=== PATIENT | male | born 1955 | race Caucasian/White ===

== ENCOUNTER 2018-12-05 09:43 | Day surgery (SDC) | payer MEDICAID ==
[~2018-12-05] VITALS: Ht 182.9 cm; Wt 90.4 kg
[2018-12-05] VITALS (10 sets, daily range): BP systolic 135–165; BP diastolic 77–90
[~2018-12-05 09:43] MED LIST: ACET-2144 PO; ASPI-1264 PO; FLO0.4C PO; LEVO750T21 PO; NEUPHOSK PO; NORCO10T PO; ONDA8TAB9 PO
[2018-12-05] MEDS ORDERED: OMEP40CA13 PO (11:41)
[2018-12-05] MEDS ORDERED: ASPI-1265 PO (11:41)
[2018-12-05] MEDS ORDERED: FLO0.4C PO (11:41)
[2018-12-05] MEDS ORDERED: HYDR12.5 PO (11:41)
[2018-12-05] MEDS ORDERED: FURO-150 PO (11:41)
[2018-12-05] MEDS ORDERED: ATOR40TA PO (11:41)
[2018-12-05] MEDS ORDERED: LIDOcaine 1%/PF 5ML 10 MG/ML VIAL ONE (15:01)
[2018-12-05 16:25] LABS: GLUCOSE,CSF 79 MG/DL (40-75); TOTAL PROTEIN,CSF 67 MG/DL (30-60)
[2018-12-05 16:31] LABS: GLUCOSE,CSF 79 MG/DL (40-75)
[2018-12-05 16:42] LABS: APPEARANCE,CSF CLEAR; CSF SUPERNATANT COLOR COLORLESS; CSF VOLUME 28 ML; TUBE# COUNTED 1
[2018-12-05 16:43] LABS: APPEARANCE,CSF CLEAR; CSF RBC 19 /CU MM (0); CSF SUPERNATANT COLOR COLORLESS; CSF VOLUME 28 ML; CSF WBC CT 0 /CU MM (0-5); CSF WBC CT 3 /CU MM (0-5); TUBE# COUNTED 4
[2018-12-05 16:44] LABS: CSF RBC 1 /CU MM (0)
== END 2018-12-05 19:55 | disposition home or self-care (01) ==
LOC: SSTAY O 09:43 → EDSTATUS 10:00 → SSTAY O 19:55
PROVIDERS: ATTEND Psychiatry & Neurology Neurology
DX: I69.318 Other symptoms and signs involving cognitive functions following cerebral infarction (principal); R41.89 Other symptoms and signs involving cognitive functions and awareness; R90.82 White matter disease, unspecified; Z87.891 Personal history of nicotine dependence; I99.8 Other disorder of circulatory system; R26.89 Other abnormalities of gait and mobility
CPT/HCPCS: 36415; 62272; 77003; 82945; 83873; 84157; 89051; 95816

== ENCOUNTER 2020-07-02 06:48 | Inpatient (IN) | payer MEDICAID ==
[2020-06-28 16:38] LABS: BASOPHILS # (AUTO) 0.1 X10'3 (0-0.2); EOSINOPHILS # (AUTO) 0.5 X10'3 (0-0.9); EOSINOPHILS % (AUTO) 4.3 % (0-6); LYMPHOCYTES # (AUTO) 1.7 X10'3 (1.1-4.8); LYMPHOCYTES % (AUTO) 15.7 % (21-51); MEAN CORPUSCULAR HEMOGLOBIN 28.1 PG (27.0-31.0); MEAN CORPUSCULAR HGB CONC 32.9 g/dL (33.0-36.5); MEAN CORPUSCULAR VOLUME 85.3 FL (78-98); MEAN PLATELET VOLUME 7.6 FL (7.4-10.4); MONOCYTES # (AUTO) 0.9 X10'3 (0-0.9); MONOCYTES % (AUTO) 8.5 % (2-12); NEUTROPHILS # (AUTO) 7.6 X10'3 (1.8-7.7); NEUTROPHILS % (AUTO) 70.5 % (42-75); PRE OP HEMATOCRIT 40.9 % (42.0-52.0); PRE OP HEMOGLOBIN 13.5 g/dL (14.0-17.9); PRE OP PLATELET COUNT 413 X10'3 (140-440); RED CELL DISTRIBUTION WIDTH 18.4 % (11.5-14.5)
[2020-06-28 16:51] LABS: PRE OP PROTIME 10.3 SECONDS (9.0-12.0)
[2020-06-28 16:57] LABS: ALBUMIN 3.3 G/DL (3.4-5.0); ALBUMIN/GLOBULIN RATIO 0.7 (1.1-1.5); ALKALINE PHOSPHATASE 103 IU/L (46-116); BLOOD UREA NITROGEN 16 MG/DL (7-18); BUN/CREATININE RATIO 18.4 (5.4-32.0); CALCIUM 9.1 MG/DL (8.5-10.1); CHLORIDE 106 MMOL/L (99-107); CREATININE 0.87 MG/DL (0.60-1.10); PRE OP ALT 23 U/L (30-65); PRE OP ANION GAP 10 (8-16); PRE OP AST 12 U/L (10-37); PRE OP BILIRUB, TOTAL 0.3 MG/DL (0.0-1.0); PRE OP GLUCOSE 90 MG/DL (70-104); PRE OP SODIUM 141 MMOL/L (135-145); TOTAL CARBON DIOXIDE 25.5 MMOL/L (24-32); TOTAL PROTEIN 8.1 G/DL (6.4-8.2); eGFR 88 ML/MIN
[2020-07-02] VITALS (25 sets, daily range): BP systolic 136–159; BP diastolic 44–98
[~2020-07-02] VITALS: Ht 182.9 cm; Wt 93.7 kg
[~2020-07-02 06:48] MED LIST changes: -ACET-2144 PO; -ASPI-1264 PO; +ASPI-1265 PO; +ATOR40TA PO; +FURO-150 PO; -LEVO750T21 PO; -NEUPHOSK PO; -NORCO10T PO; +OMEP40CA13 PO; -ONDA8TAB9 PO; +POTA10TA19 PO; +ROPI0.2540 PO; +VALS40TA11 PO; +albuterol 2.5 MG/3 ML nebule NEB ONE; +famotidine 20mg tablet PO ONE; +ringers solution, lacted 1,000 ML IV SCH
[2020-07-02] MEDS ORDERED: HYDROmorphone inj. 0.5 MG/0.5 ML DISP.SYRIN IV PRN (06:50)
[2020-07-02] MEDS ORDERED: ondansetron/PF 4mg/2ml inj IV PRN ×2 (06:50→14:00)
[2020-07-02] MEDS ORDERED: magnesium hydroxide 30ml (MOM) UD suspension PO PRN (06:50)
[2020-07-02] MEDS ORDERED: acetaminophen 325mg tablet PO PRN (06:50)
[2020-07-02] MEDS ORDERED: HYDROmorphone 1 mg/ml syringe IV PRN (06:50)
[2020-07-02] MEDS ORDERED: diphenhydrAMINE 25mg capsule PO PRN ×2 (06:50)
[2020-07-02] MEDS ORDERED: HYDROcodone/acetaminophen 10/325mg tab PO PRN ×2 (06:50)
[2020-07-02] MEDS ORDERED: bisacodyl 10mg suppository rectal RC PRN (06:50)
[2020-07-02] MEDS ORDERED: gabapentin 300mg capsule PO SCH (08:00)
[2020-07-02] MEDS: potassium chloride 10mEq ER tablet PO SCH (08:00)
[2020-07-02] MEDS: multivitamins, therapeutics tablet PO SCH (08:00)
[2020-07-02] MEDS: furosemide 40mg tablet PO SCH (08:00)
[2020-07-02] MEDS ORDERED: tamsulosin 0.4mg capsule PO SCH (08:00)
[2020-07-02] MEDS: atorvastatin 20mg tablet PO SCH (08:00)
[2020-07-02] MEDS ORDERED: cefazolin/dext.iso 2gm/100ml IV ONE (09:01)
[2020-07-02] MEDS ORDERED: VANCOMYCIN INJ 1000 MG in NORMAL SALINE 250ml IV.SOLN IV ONE (09:02)
[2020-07-02] MEDS ORDERED: tranexamic acid 1gm/0.7% sal. 100 ML IV ONE (09:02)
[2020-07-02] MEDS ORDERED: gabapentin 300mg capsule PO ONE (09:03)
[2020-07-02] MEDS ORDERED: celeCOXIB 100mg capsule PO ONE (09:03)
[2020-07-02] MEDS ORDERED: acetaminophen 325mg tablet PO ONE (09:03)
[2020-07-02] MEDS ORDERED: oxyCODONE SR 10mg (sust. release) tab -2 tabs (20mg) PO ONE (09:03)
[2020-07-02] MEDS ORDERED: metoclopramide 5 mg/ml inj IV ONE (09:05)
[2020-07-02] MEDS ORDERED: oxyCODONE SR 10mg (sust. release) tab PO ONE (11:55)
[2020-07-02] MEDS ORDERED: vancomycin 1,000mg inj ONE ×2 (11:59→12:42)
[2020-07-02] MEDS ORDERED: tobramycin sulfate 1.2gm vial IV ONE (12:30)
[2020-07-02] MEDS ORDERED: midazolam 1 mg/ML 2ml injection ONE (13:09)
[2020-07-02] MEDS ORDERED: propofol inj 20 ML IV ONE (13:10)
[2020-07-02] MEDS ORDERED: fentaNYL /PF 50mcg/ml 5ml ampule ONE (13:10)
[2020-07-02] MEDS ORDERED: rocuronium 10mg/ml inj IV ONE (13:12)
[2020-07-02] MEDS ORDERED: sevoflurane 250ml liquid IH ONE (13:12)
[2020-07-02] MEDS ORDERED: ROPIVAcaine 0.5% (5mg/ml) 30ml vial ONE (13:24)
[2020-07-02] MEDS ORDERED: morphine 4 MG/ML inj SYRINge IV PRN (14:00)
[2020-07-02] MEDS ORDERED: morphine 2 MG/ML inj. syringe IV PRN (14:00)
[2020-07-02] MEDS ORDERED: ringers solution, lacted 1,000 ML IV SCH (14:00)
[2020-07-02] MEDS ORDERED: meperidine/PF 25mg/ml syringe IV PRN ×3 (14:00)
[2020-07-02] MEDS ORDERED: proCHLORperazine 10 MG/2 ml inj IV PRN (14:00)
[2020-07-02] MEDS ORDERED: albumin (Human) 5% 250ml 250 ML IV ONE ×3 (14:45→15:46)
[2020-07-02] MEDS ORDERED: fentaNYL/PF 50MCG/1 ML 2ML syringe ONE (15:48)
--- NOTE | 2020-07-02 16:17 | NUR ---
Received from OR via BED, accompanied by Anesthesiologist DR ISABEL and report given by Anesthesiologist. PT VERY DROWSY, NO S/S OF DISTRESS/DISCOMFORT. RIGHT HIP/THIGH W/[place] DRAIN CDI W/GREEN LIGHT ILLUMINATION, RIGHT LEG IN BRACE. Addendum: 07/02/20 at 1841 by Velma Baca RN Amended: Links added.
[2020-07-02] MEDS: potassium cl 20mEq in 1/2 NS 1,000 ML IV SCH (17:30)
--- NOTE | 2020-07-02 18:30 | NUR ---
Problems reprioritized. Patient report given, questions answered & plan of care reviewed with TERENCE Grijalva.
--- NOTE | 2020-07-02 18:57 | NUR ---
Report called to receiving nurse. Transferred via BED, W/C AND 2 BAGS OF PERSONAL Belongings, BLL, CALL LIGHT GIVEN, SIDE RAILS UP X 2. CONCRETE PUDDLER NOTIFIED OF PTS ARRIVAL. Special Issues communicated to receiving nurse. YES. Addendum: 07/02/20 at 1925 by Velma Baca RN Amended: Links added.
[2020-07-02] MEDS ORDERED: NORMAL SALINE IV ONE (19:45)
[2020-07-02] MEDS ORDERED: TRANEXAMIC ACID IV ONE (19:45)
--- NOTE | 2020-07-02 20:00 | NUR ---
PT RESTING IN BED COMFORTABLY FOLLOWING PROCEDURE. PT STATES HE IS TIRED BUT IN NO PAIN OR DISTRESS AT THIS TIME. PT POSITIONED COMFORTABLY AT THIS TIME WITH CALL LIGHT WITHIN REACH AND BED LOCKED IN LOWEST POSITION.
[2020-07-02] MEDS: sennosides 8.6mg tablet PO SCH (22:09)
[2020-07-02] MEDS: gabapentin 300mg capsule PO SCH (22:09)
[2020-07-02] MEDS: ascorbic acid 500mg tablet PO SCH (22:09)
[2020-07-02] MEDS: cefazolin/dext.iso 2gm/100ml 100 ML IV SCH (22:10)
[2020-07-02] MEDS: ROPINIRole 0.25mg tablet PO SCH (22:10)
[2020-07-03] VITALS (7 sets, daily range): BP systolic 110–148; BP diastolic 69–85
[2020-07-03] MEDS: cefazolin/dext.iso 2gm/100ml 100 ML IV SCH (00:35)
[2020-07-03] MEDS: potassium cl 20mEq in 1/2 NS 1,000 ML IV SCH ×2 (00:35→13:53)
[2020-07-03 06:11] LABS: BASOPHILS % (AUTO) 0.4 % (0-1); EOSINOPHILS # (AUTO) 0.1 X10'3 (0-0.9); EOSINOPHILS % (AUTO) 0.9 % (0-6); HEMATOCRIT 27.6 % (42.0-52.0); HEMOGLOBIN 9.3 g/dl (14.0-17.9); LYMPHOCYTES # (AUTO) 1.6 X10'3 (1.1-4.8); LYMPHOCYTES % (AUTO) 16.6 % (21-51); MEAN CORPUSCULAR HEMOGLOBIN 28.8 PG (27.0-31.0); MEAN CORPUSCULAR HGB CONC 33.8 g/dL (33.0-36.5); MEAN CORPUSCULAR VOLUME 85.1 FL (78-98); MEAN PLATELET VOLUME 7.8 FL (7.4-10.4); MONOCYTES # (AUTO) 0.7 X10'3 (0-0.9); MONOCYTES % (AUTO) 7.5 % (2-12); NEUTROPHILS # (AUTO) 7.4 X10'3 (1.8-7.7); NEUTROPHILS % (AUTO) 74.6 % (42-75); PLATELET COUNT 314 X10'3 (140-440); RED BLOOD COUNT 3.24 X10'6 (4.70-6.10); RED CELL DISTRIBUTION WIDTH 17.7 % (11.5-14.5); WHITE BLOOD COUNT 9.9 X10'3 (4.5-11.0)
[2020-07-03 06:23] LABS: ANION GAP 11 (8-16); CHLORIDE 109 MMOL/L (99-107); POTASSIUM 3.9 MMOL/L (3.5-5.1); SODIUM 142 MMOL/L (135-145); TOTAL CARBON DIOXIDE 22.3 MMOL/L (24-32)
--- NOTE | 2020-07-03 06:40 | NUR ---
Patient in room ORTHO 4022. I have received report from izabella jose and had the opportunity to ask questions and assume patient care.
[2020-07-03] MEDS ORDERED: aspirin 325mg tablet ONE (07:17)
[2020-07-03] MEDS: pantoprazole 40mg Tablet.DR PO SCH (07:31)
[2020-07-03] MEDS: ascorbic acid 500mg tablet PO SCH ×2 (07:31→20:12)
[2020-07-03] MEDS: tamsulosin 0.4mg capsule PO SCH (07:31)
[2020-07-03] MEDS: furosemide 40mg tablet PO SCH (07:31)
[2020-07-03] MEDS: multivitamins, therapeutics tablet PO SCH (07:31)
[2020-07-03] MEDS: atorvastatin 20mg tablet PO SCH (07:32)
[2020-07-03] MEDS: potassium chloride 10mEq ER tablet PO SCH (07:32)
[2020-07-03] MEDS: gabapentin 300mg capsule PO SCH ×3 (07:32→20:12)
[2020-07-03] MEDS: losartan 25mg tablet PO SCH (07:32)
[2020-07-03] MEDS ORDERED: aspirin 325mg tablet PO SCH (08:30)
--- NOTE | 2020-07-03 18:03 | NUR ---
Problems reprioritized. Patient report given, questions answered & plan of care reviewed with
--- NOTE | 2020-07-03 18:30 | NUR ---
Patient in room ORTHO 4022. I have received report from TERENCE SCHWARTZ and had the opportunity to ask questions and assume patient care.
[2020-07-03] MEDS: celeCOXIB 100mg capsule PO SCH (20:11)
[2020-07-03] MEDS: sennosides 8.6mg tablet PO SCH (20:12)
[2020-07-03] MEDS: ROPINIRole 0.25mg tablet PO SCH (20:12)
[2020-07-03] MEDS: enoxaparin 40mg/0.4ml syringe SUBCUT SCH (20:13)
[2020-07-04 06:00] VITALS: BP 127/81
--- NOTE | 2020-07-04 06:13 | NUR ---
Patient in room ORTHO 4022. I have received report from Yayo Stewart and had the opportunity to ask questions and assume patient care.
[2020-07-04 06:21] LABS: BASOPHILS % (AUTO) 0.3 % (0-1); EOSINOPHILS # (AUTO) 0.4 X10'3 (0-0.9); EOSINOPHILS % (AUTO) 3.7 % (0-6); HEMATOCRIT 25.7 % (42.0-52.0); HEMOGLOBIN 8.8 g/dl (14.0-17.9); LYMPHOCYTES # (AUTO) 1.6 X10'3 (1.1-4.8); LYMPHOCYTES % (AUTO) 14.5 % (21-51); MEAN CORPUSCULAR HGB CONC 34.2 g/dL (33.0-36.5); MEAN PLATELET VOLUME 7.9 FL (7.4-10.4); MONOCYTES % (AUTO) 9.6 % (2-12); NEUTROPHILS # (AUTO) 7.8 X10'3 (1.8-7.7); NEUTROPHILS % (AUTO) 71.9 % (42-75); PLATELET COUNT 276 X10'3 (140-440); RED BLOOD COUNT 3.02 X10'6 (4.70-6.10); RED CELL DISTRIBUTION WIDTH 17.7 % (11.5-14.5); WHITE BLOOD COUNT 10.9 X10'3 (4.5-11.0)
--- NOTE | 2020-07-04 06:25 | NUR ---
Problems reprioritized. Patient report given, questions answered & plan of care reviewed with TERENCE LINARES.
[2020-07-04] MEDS: pantoprazole 40mg Tablet.DR PO SCH (08:37)
[2020-07-04] MEDS: gabapentin 300mg capsule PO SCH ×3 (08:37→20:17)
[2020-07-04] MEDS: atorvastatin 20mg tablet PO SCH (08:38)
[2020-07-04] MEDS: furosemide 40mg tablet PO SCH (08:38)
[2020-07-04] MEDS: ascorbic acid 500mg tablet PO SCH ×2 (08:38→20:16)
[2020-07-04] MEDS: potassium chloride 10mEq ER tablet PO SCH (08:38)
[2020-07-04] MEDS: losartan 25mg tablet PO SCH (08:39)
[2020-07-04] MEDS: celeCOXIB 100mg capsule PO SCH ×2 (08:39→20:17)
[2020-07-04] MEDS: tamsulosin 0.4mg capsule PO SCH (08:39)
[2020-07-04] MEDS: multivitamins, therapeutics tablet PO SCH (08:40)
[2020-07-04 10:00] VITALS: BP 125/78
[2020-07-04] MEDS: VANCOmycin 1250MG/NS 250ml Bag 250 ML IV SCH (12:22)
[2020-07-04 18:00] VITALS: BP 107/63
--- NOTE | 2020-07-04 18:33 | NUR ---
Problems reprioritized. Patient report given, questions answered & plan of care reviewed with Best PRATT.
[2020-07-04] MEDS: enoxaparin 40mg/0.4ml syringe SUBCUT SCH (20:16)
[2020-07-04] MEDS: sennosides 8.6mg tablet PO SCH (20:16)
[2020-07-04] MEDS: ROPINIRole 0.25mg tablet PO SCH (20:17)
[2020-07-04 21:34] VITALS: BP 104/62
[2020-07-05] MEDS: VANCOmycin 1250MG/NS 250ml Bag 250 ML IV SCH ×2 (00:17→12:04)
[2020-07-05 06:00] VITALS: BP 141/75
--- NOTE | 2020-07-05 06:08 | NUR ---
Problems reprioritized. Patient report given, questions answered & plan of care reviewed with TERENCE Patel.
[2020-07-05 06:09] LABS: BASOPHILS % (AUTO) 0.3 % (0-1); EOSINOPHILS # (AUTO) 0.5 X10'3 (0-0.9); EOSINOPHILS % (AUTO) 5.2 % (0-6); HEMATOCRIT 26.3 % (42.0-52.0); HEMOGLOBIN 8.8 g/dl (14.0-17.9); LYMPHOCYTES # (AUTO) 1.3 X10'3 (1.1-4.8); LYMPHOCYTES % (AUTO) 13.8 % (21-51); MEAN CORPUSCULAR HEMOGLOBIN 28.5 PG (27.0-31.0); MEAN CORPUSCULAR HGB CONC 33.3 g/dL (33.0-36.5); MEAN CORPUSCULAR VOLUME 85.4 FL (78-98); MEAN PLATELET VOLUME 7.8 FL (7.4-10.4); MONOCYTES # (AUTO) 0.9 X10'3 (0-0.9); MONOCYTES % (AUTO) 9.7 % (2-12); NEUTROPHILS # (AUTO) 6.5 X10'3 (1.8-7.7); PLATELET COUNT 299 X10'3 (140-440); RED BLOOD COUNT 3.08 X10'6 (4.70-6.10); RED CELL DISTRIBUTION WIDTH 17.8 % (11.5-14.5); WHITE BLOOD COUNT 9.2 X10'3 (4.5-11.0)
[2020-07-05 06:24] LABS: ALBUMIN 2.6 G/DL (3.4-5.0); ANION GAP 10 (8-16); BLOOD UREA NITROGEN 12 MG/DL (7-18); BUN/CREATININE RATIO 14.1 (5.4-32.0); CALCIUM 8.2 MG/DL (8.5-10.1); CHLORIDE 105 MMOL/L (99-107); CREATININE 0.85 MG/DL (0.60-1.10); GLUCOSE 103 MG/DL (70-104); POTASSIUM 3.6 MMOL/L (3.5-5.1); SODIUM 139 MMOL/L (135-145); TOTAL CARBON DIOXIDE 24.1 MMOL/L (24-32); eGFR > 90 ML/MIN
[2020-07-05] MEDS: tamsulosin 0.4mg capsule PO SCH (08:43)
[2020-07-05] MEDS: losartan 25mg tablet PO SCH (08:43)
[2020-07-05] MEDS: pantoprazole 40mg Tablet.DR PO SCH (08:43)
[2020-07-05] MEDS: potassium chloride 10mEq ER tablet PO SCH (08:43)
[2020-07-05] MEDS: gabapentin 300mg capsule PO SCH ×2 (08:44→12:04)
[2020-07-05] MEDS: celeCOXIB 100mg capsule PO SCH ×2 (08:44→22:56)
[2020-07-05] MEDS: multivitamins, therapeutics tablet PO SCH (08:44)
[2020-07-05] MEDS: atorvastatin 20mg tablet PO SCH (08:44)
[2020-07-05] MEDS: furosemide 40mg tablet PO SCH (08:45)
[2020-07-05] MEDS: ascorbic acid 500mg tablet PO SCH ×2 (08:45→23:02)
[2020-07-05 09:34] VITALS: BP 111/64
[2020-07-05] MEDS ORDERED: methylnaltrexone br 12mg/0.6ml inj***SubQ only SQ ONE (12:15)
[2020-07-05] MEDS ORDERED: gabapentin 100mg capsule PO SCH (13:00)
[2020-07-05] MEDS: ipratropium/albuterol 3ml nebule NEB SCH ×3 (15:00→19:45)
[2020-07-05 18:00] VITALS: BP 94/47
--- NOTE | 2020-07-05 18:00 | NUR ---
Patient in room ORTHO 4018. I have received report from Amanda PRATT and had the opportunity to ask questions and assume patient care. Addendum: 07/05/20 at 1857 by Ashlee Augustine RN Amended: Links added.
--- NOTE | 2020-07-05 18:27 | NUR ---
Problems reprioritized. Patient report given, questions answered & plan of care reviewed with Ashlee PRATT.
--- NOTE | 2020-07-05 20:45 | NUR ---
Pt requested a nicotine patch and stated he smokes half pack a day. Dr. Rocha was called and an order for 7mg Nicotine patch was obtained and has been ordered to begin at 2100.
--- NOTE | 2020-07-05 21:45 | NUR ---
Pt. awake laying in bed denies pain at this time. Pt. is alert to own name only; reoriented pt to place, time, and events. Rt hip wound with [place] dressing patent at this time, surrounding skin incision area with mild swelling noted. Pt. able to winkle the toes without difficulties. Bed in low position and call light within reach. Addendum: 07/06/20 at 0357 by Ashlee Augustine RN Amended: Links added.
[2020-07-05 22:00] VITALS: BP 90/53
[2020-07-05] MEDS: enoxaparin 40mg/0.4ml syringe SUBCUT SCH (22:56)
[2020-07-05] MEDS: ROPINIRole 0.25mg tablet PO SCH (22:56)
[2020-07-05] MEDS: lactobacillus rhamnosus 10,000 MMU CELLS/CAPSULE PO SCH (22:56)
[2020-07-05] MEDS: gabapentin 100mg capsule PO SCH (22:56)
[2020-07-05] MEDS: nicotine 7mg patch - 24hr TD SCH (22:57)
[2020-07-05] MEDS: sennosides 8.6mg tablet PO SCH (23:02)
[2020-07-05] MEDS ORDERED: VANCOMYCIN LEVEL IV ONE (23:30)
--- NOTE | 2020-07-05 23:30 | NUR ---
Reviewed pt's bp manually and revealed 122/56, Hr 86, and Temp 99.6. Addendum: 07/06/20 at 0751 by Ashlee Augustine RN Amended: Links added.
[2020-07-06 06:00] VITALS: BP 109/57
--- NOTE | 2020-07-06 06:00 | NUR ---
Problems reprioritized. Patient report given, questions answered & plan of care reviewed with Amanda PRATT. Addendum: 07/06/20 at 0748 by Ashlee Augustine RN Amended: Links added.
[2020-07-06] MEDS: multivitamins, therapeutics tablet PO SCH (07:10)
[2020-07-06] MEDS: furosemide 40mg tablet PO SCH (07:10)
[2020-07-06] MEDS: potassium chloride 10mEq ER tablet PO SCH (07:10)
[2020-07-06] MEDS: lactobacillus rhamnosus 10,000 MMU CELLS/CAPSULE PO SCH ×2 (07:10→19:23)
[2020-07-06] MEDS: pantoprazole 40mg Tablet.DR PO SCH (07:10)
[2020-07-06] MEDS: tamsulosin 0.4mg capsule PO SCH (07:11)
[2020-07-06] MEDS: gabapentin 100mg capsule PO SCH ×3 (07:11→20:57)
[2020-07-06] MEDS: ascorbic acid 500mg tablet PO SCH ×2 (07:11→19:23)
[2020-07-06] MEDS: atorvastatin 20mg tablet PO SCH (07:11)
[2020-07-06] MEDS: celeCOXIB 100mg capsule PO SCH ×2 (07:12→19:23)
[2020-07-06] MEDS: losartan 25mg tablet PO SCH (07:12)
[2020-07-06] MEDS: ipratropium/albuterol 3ml nebule NEB SCH ×4 (08:06→19:51)
[2020-07-06 10:00] VITALS: BP 103/52
[2020-07-06] MEDS ORDERED: VANCOMYCIN LEVEL IV ONE (11:30)
[2020-07-06] MEDS: VANCOmycin 1250MG/NS 250ml Bag 250 ML IV SCH ×2 (12:25)
[2020-07-06 18:00] VITALS: BP 116/60
--- NOTE | 2020-07-06 18:08 | NUR ---
Problems reprioritized. Patient report given, questions answered & plan of care reviewed with silvia PRATT.
--- NOTE | 2020-07-06 18:21 | NUR ---
Patient in room ORTHO 4022. I have received report from kash jose and had the opportunity to ask questions and assume patient care.
[2020-07-06] MEDS: enoxaparin 40mg/0.4ml syringe SUBCUT SCH (19:23)
[2020-07-06] MEDS: sennosides 8.6mg tablet PO SCH (20:57)
[2020-07-06] MEDS: ROPINIRole 0.25mg tablet PO SCH (20:57)
[2020-07-06] MEDS: nicotine 7mg patch - 24hr TD SCH (21:02)
[2020-07-06 22:00] VITALS: BP 98/50
[2020-07-07 02:00] VITALS: BP 115/58
[2020-07-07 06:00] VITALS: BP 116/51
--- NOTE | 2020-07-07 06:25 | NUR ---
received report from damon vega
--- NOTE | 2020-07-07 06:26 | NUR ---
Problems reprioritized. Patient report given, questions answered & plan of care reviewed with latasha jose .
[2020-07-07] MEDS: lactobacillus rhamnosus 10,000 MMU CELLS/CAPSULE PO SCH ×2 (07:39→20:26)
[2020-07-07] MEDS: potassium chloride 10mEq ER tablet PO SCH (07:39)
[2020-07-07] MEDS: celeCOXIB 100mg capsule PO SCH ×2 (07:39→20:26)
[2020-07-07] MEDS: pantoprazole 40mg Tablet.DR PO SCH (07:40)
[2020-07-07] MEDS: multivitamins, therapeutics tablet PO SCH (07:40)
[2020-07-07] MEDS: gabapentin 100mg capsule PO SCH ×3 (07:40→21:31)
[2020-07-07] MEDS: ascorbic acid 500mg tablet PO SCH ×2 (07:40→20:26)
[2020-07-07] MEDS: furosemide 40mg tablet PO SCH (07:41)
[2020-07-07] MEDS: atorvastatin 20mg tablet PO SCH (07:41)
[2020-07-07] MEDS: tamsulosin 0.4mg capsule PO SCH (07:42)
[2020-07-07] MEDS: losartan 25mg tablet PO SCH (07:42)
[2020-07-07] MEDS: nicotine 7mg patch - 24hr TD SCH (07:43)
--- NOTE | 2020-07-07 08:00 | NUR ---
UNABLE TO OBTAIN PTS WEIGHT AT THIS TIME
[2020-07-07] MEDS: ipratropium/albuterol 3ml nebule NEB SCH ×4 (08:04→19:24)
[2020-07-07 10:00] VITALS: BP 135/90
--- NOTE | 2020-07-07 12:49 | NUR ---
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 PO 75-100% avg regular diet meeting needs. LB 07/05. No nutrition intervention at this time. Will continue to monitor. Rec: 1. continue regular diet 2. routine bowel care 3. weekly wts Addendum: 07/07/20 at [address] Amended: Links added.
[2020-07-07 18:00] VITALS: BP 110/59
--- NOTE | 2020-07-07 18:31 | NUR ---
gave report to damon powell
[2020-07-07] MEDS: enoxaparin 40mg/0.4ml syringe SUBCUT SCH (20:26)
[2020-07-07] MEDS: sennosides 8.6mg tablet PO SCH (21:00)
[2020-07-07] MEDS: ROPINIRole 0.25mg tablet PO SCH (21:32)
[2020-07-07 22:00] VITALS: BP 112/67
[2020-07-08 05:59] LABS: BASOPHILS % (AUTO) 0.5 % (0-1); EOSINOPHILS # (AUTO) 0.6 X10'3 (0-0.9); EOSINOPHILS % (AUTO) 6.1 % (0-6); HEMOGLOBIN 8.1 g/dl (14.0-17.9); LYMPHOCYTES # (AUTO) 1.5 X10'3 (1.1-4.8); LYMPHOCYTES % (AUTO) 15.5 % (21-51); MEAN CORPUSCULAR HEMOGLOBIN 28.8 PG (27.0-31.0); MEAN CORPUSCULAR HGB CONC 33.5 g/dL (33.0-36.5); MEAN PLATELET VOLUME 7.5 FL (7.4-10.4); MONOCYTES # (AUTO) 0.6 X10'3 (0-0.9); MONOCYTES % (AUTO) 6.3 % (2-12); NEUTROPHILS % (AUTO) 71.6 % (42-75); PLATELET COUNT 369 X10'3 (140-440); RED CELL DISTRIBUTION WIDTH 17.8 % (11.5-14.5); WHITE BLOOD COUNT 9.7 X10'3 (4.5-11.0)
[2020-07-08 06:00] VITALS: BP 126/81
[2020-07-08 06:15] LABS: ALANINE AMINOTRANSFERASE 29 U/L (12-78); ALBUMIN 2.6 G/DL (3.4-5.0); ALBUMIN/GLOBULIN RATIO 0.7 (1.1-1.5); ALKALINE PHOSPHATASE 74 IU/L (46-116); ANION GAP 11 (8-16); ASPARTATE AMINO TRANSFERASE 33 U/L (10-37); BILIRUBIN,TOTAL 0.6 MG/DL (0.1-1.0); BLOOD UREA NITROGEN 12 MG/DL (7-18); BUN/CREATININE RATIO 16.4 (5.4-32.0); CALCIUM 8.1 MG/DL (8.5-10.1); CHLORIDE 106 MMOL/L (99-107); CREATININE 0.73 MG/DL (0.60-1.10); GLUCOSE 105 MG/DL (70-104); POTASSIUM 3.7 MMOL/L (3.5-5.1); SODIUM 141 MMOL/L (135-145); TOTAL CARBON DIOXIDE 23.7 MMOL/L (24-32); TOTAL PROTEIN 6.4 G/DL (6.4-8.2); eGFR > 90 ML/MIN
[2020-07-08] MEDS: ipratropium/albuterol 3ml nebule NEB SCH ×4 (07:41→19:54)
[2020-07-08] MEDS: lactobacillus rhamnosus 10,000 MMU CELLS/CAPSULE PO SCH ×2 (08:06→20:46)
[2020-07-08] MEDS: furosemide 40mg tablet PO SCH (08:06)
[2020-07-08] MEDS: multivitamins, therapeutics tablet PO SCH (08:06)
[2020-07-08] MEDS: celeCOXIB 100mg capsule PO SCH ×2 (08:06→20:46)
[2020-07-08] MEDS: atorvastatin 20mg tablet PO SCH (08:07)
[2020-07-08] MEDS: losartan 25mg tablet PO SCH (08:07)
[2020-07-08] MEDS: gabapentin 100mg capsule PO SCH ×3 (08:07→20:46)
[2020-07-08] MEDS: ascorbic acid 500mg tablet PO SCH ×2 (08:07→20:46)
[2020-07-08] MEDS: potassium chloride 10mEq ER tablet PO SCH (08:07)
[2020-07-08] MEDS: tamsulosin 0.4mg capsule PO SCH (08:07)
[2020-07-08] MEDS: nicotine 7mg patch - 24hr TD SCH (08:08)
[2020-07-08] MEDS: pantoprazole 40mg Tablet.DR PO SCH (08:08)
[2020-07-08 10:00] VITALS: BP 104/59
[2020-07-08] MEDS ORDERED: VANCOMYCIN LEVEL IV ONE (11:30)
[2020-07-08 14:00] VITALS: BP 106/59
[2020-07-08 18:18] VITALS: BP 117/67
[2020-07-08] MEDS: ROPINIRole 0.25mg tablet PO SCH (20:46)
[2020-07-08] MEDS: sennosides 8.6mg tablet PO SCH (20:46)
[2020-07-08] MEDS: enoxaparin 40mg/0.4ml syringe SUBCUT SCH (20:48)
[2020-07-08 22:00] VITALS: BP 109/62
--- NOTE | 2020-07-09 06:33 | NUR ---
Patient in room ORTHO 4022. I have received report from Maite PRATT and had the opportunity to ask questions and assume patient care.
[2020-07-09 06:37] VITALS: BP 115/68
[2020-07-09] MEDS: ipratropium/albuterol 3ml nebule NEB SCH ×3 (06:45→15:22)
[2020-07-09] MEDS: losartan 25mg tablet PO SCH (08:00)
[2020-07-09 08:11] LABS: BASOPHILS # (AUTO) 0.1 X10'3 (0-0.2); BASOPHILS % (AUTO) 0.6 % (0-1); EOSINOPHILS # (AUTO) 0.6 X10'3 (0-0.9); EOSINOPHILS % (AUTO) 5.8 % (0-6); HEMATOCRIT 24.1 % (42.0-52.0); LYMPHOCYTES # (AUTO) 1.5 X10'3 (1.1-4.8); LYMPHOCYTES % (AUTO) 15.5 % (21-51); MEAN CORPUSCULAR HEMOGLOBIN 28.7 PG (27.0-31.0); MEAN CORPUSCULAR HGB CONC 33.1 g/dL (33.0-36.5); MEAN CORPUSCULAR VOLUME 86.6 FL (78-98); MEAN PLATELET VOLUME 7.4 FL (7.4-10.4); MONOCYTES # (AUTO) 0.6 X10'3 (0-0.9); NEUTROPHILS % (AUTO) 72.1 % (42-75); PLATELET COUNT 414 X10'3 (140-440); RED BLOOD COUNT 2.79 X10'6 (4.70-6.10); RED CELL DISTRIBUTION WIDTH 17.9 % (11.5-14.5); WHITE BLOOD COUNT 9.6 X10'3 (4.5-11.0)
[2020-07-09] MEDS: pantoprazole 40mg Tablet.DR PO SCH (08:12)
[2020-07-09] MEDS: nicotine 7mg patch - 24hr TD SCH (08:12)
[2020-07-09] MEDS: multivitamins, therapeutics tablet PO SCH (08:12)
[2020-07-09] MEDS: furosemide 40mg tablet PO SCH (08:12)
[2020-07-09] MEDS: potassium chloride 10mEq ER tablet PO SCH (08:12)
[2020-07-09] MEDS: tamsulosin 0.4mg capsule PO SCH (08:12)
[2020-07-09] MEDS: ascorbic acid 500mg tablet PO SCH (08:12)
[2020-07-09] MEDS: celeCOXIB 100mg capsule PO SCH (08:13)
[2020-07-09] MEDS: lactobacillus rhamnosus 10,000 MMU CELLS/CAPSULE PO SCH (08:13)
[2020-07-09] MEDS: atorvastatin 20mg tablet PO SCH (08:13)
[2020-07-09] MEDS: gabapentin 100mg capsule PO SCH ×2 (08:13→12:27)
--- NOTE | 2020-07-09 11:10 | NUR ---
pt. refused 1100 svn. wants to sleep. no resp. distress observed
[2020-07-09 11:13] VITALS: BP 137/77
[2020-07-09] MEDS ORDERED: methylnaltrexone br 12mg/0.6ml inj***SubQ only SQ ONE (11:50)
--- NOTE | 2020-07-09 15:25 | NUR ---
Called report to [facility]. Chart copy placed in chart.
--- NOTE | 2020-07-09 17:55 | NUR ---
[facility] ambulance is here to transport the patient to [facility].
== END 2020-07-09 18:20 | DRG 301 ==
LOC: PAS IN 06:48 → UNDOADMIN 10:54 → EDSTATUS 13:00 → PAS IN 19:00 → ORTHO 4S 19:00
PROVIDERS: ADMIT Orthopaedic Surgery; ATTEND Orthopaedic Surgery
PROC: 0SP90JZ Removal of Synthetic Substitute from Right Hip Joint, Open Approach (ICD-10-PCS; 2020-07-02)
PROC: 0SH908Z Insertion of Spacer into Right Hip Joint, Open Approach (ICD-10-PCS; 2020-07-02)
PROC: 0SR90J9 Replacement of Right Hip Joint with Synthetic Substitute, Cemented, Open Approach (ICD-10-PCS; principal; 2020-07-02 13:12)
PROC: 02HV33Z Insertion of Infusion Device into Superior Vena Cava, Percutaneous Approach (ICD-10-PCS; 2020-07-05)
PROC: B548ZZA Ultrasonography of Superior Vena Cava, Guidance (ICD-10-PCS; 2020-07-05)
DX: T84.51XA Infection and inflammatory reaction due to internal right hip prosthesis, initial encounter (principal); D62 Acute posthemorrhagic anemia; E78.5 Hyperlipidemia, unspecified; Y83.8 Other surgical procedures as the cause of abnormal reaction of the patient, or of later complication, without mention of misadventure at the time of the procedure; I10 Essential (primary) hypertension; Z79.82 Long term (current) use of aspirin; Z86.73 Personal history of transient ischemic attack (TIA), and cerebral infarction without residual deficits; Y92.89 Other specified places as the place of occurrence of the external cause; Z90.49 Acquired absence of other specified parts of digestive tract; Z88.0 Allergy status to penicillin; Z79.899 Other long term (current) drug therapy
CPT/HCPCS: 36415; 36573; 71046; 72170; 76937; 80048; 80051; 80053; 80202; 82948; 85025; 85610; 85730; 86885; 86900; 86901; 86920; 87081; 93005; 94640; 94760; 97110; 97116; 97161; 97530; A4215; A6454; A7000; A9272; C1713; C1776; G0378; J1650; J2212; J2250; J2704; J2765; J2795; J3010; J3370; J3480; J7120; P9045; U0003; U0005

== ENCOUNTER 2021-06-02 13:32 | Day surgery (SDC) | payer OTHER ==
[~2021-06-02] VITALS: Ht 182.9 cm; Wt 84.8 kg
[~2021-06-02 13:32] MED LIST changes: -OMEP40CA13 PO; +OMEP40CA21 PO; +POTA-192 PO; -POTA10TA19 PO; -albuterol 2.5 MG/3 ML nebule NEB ONE; -famotidine 20mg tablet PO ONE; -ringers solution, lacted 1,000 ML IV SCH
[2021-06-02] MEDS ORDERED: normal saline 1000ml 1,000 ML IV PRN (13:50)
[2021-06-02] MEDS ORDERED: zinc oxide ointment 30gm tube TP PRN (14:00)
[2021-06-02] MEDS ORDERED: LIDOcaine 1%/PF 5ML 10 MG/ML VIAL ONE (14:05)
[2021-06-02] MEDS ORDERED: diphenhydrAMINE 50 mg/ml inj ONE (14:05)
[2021-06-02] MEDS ORDERED: glucagon, human recombinant 1mg kit ONE (14:05)
[2021-06-02] MEDS ORDERED: fentaNYL/PF 50MCG/1 ML 2ML syringe ONE (14:06)
[2021-06-02] MEDS ORDERED: iohexol 300 MG/1 ML 50ml polymer ONE (14:06)
[2021-06-02] MEDS ORDERED: midazolam 1 mg/ML 2ml injection ONE (14:06)
[2021-06-02 14:10] VITALS: BP 143/80
[2021-06-02 14:11] LABS: BASOPHILS # (AUTO) 0.1 X10'3 (0-0.2); BASOPHILS % (AUTO) 0.6 % (0-1); EOSINOPHILS # (AUTO) 0.1 X10'3 (0-0.9); EOSINOPHILS % (AUTO) 0.4 % (0-6); HEMATOCRIT 32.2 % (42.0-52.0); HEMOGLOBIN 9.9 g/dl (14.0-17.9); LYMPHOCYTES # (AUTO) 1.6 X10'3 (1.1-4.8); LYMPHOCYTES % (AUTO) 7.3 % (21-51); MEAN CORPUSCULAR HEMOGLOBIN 26.4 PG (27.0-31.0); MEAN CORPUSCULAR HGB CONC 30.8 g/dL (33.0-36.5); MEAN CORPUSCULAR VOLUME 85.6 FL (78-98); MEAN PLATELET VOLUME 7.9 FL (7.4-10.4); MONOCYTES # (AUTO) 1.3 X10'3 (0-0.9); MONOCYTES % (AUTO) 6.2 % (2-12); NEUTROPHILS # (AUTO) 18.6 X10'3 (1.8-7.7); NEUTROPHILS % (AUTO) 85.5 % (42-75); PLATELET COUNT 424 X10'3 (140-440); RED BLOOD COUNT 3.76 X10'6 (4.70-6.10); RED CELL DISTRIBUTION WIDTH 22.1 % (11.5-14.5); WHITE BLOOD COUNT 21.7 X10'3 (4.5-11.0)
[2021-06-02 14:49] LABS: ANISOCYTOSIS 3+; PLATELET ESTIMATE NORMAL
[2021-06-02] MEDS ORDERED: ondansetron/PF 4mg/2ml inj ONE (14:52)
[2021-06-02 15:16] VITALS: BP 140/93
[2021-06-02 15:40] VITALS: BP 135/92
--- NOTE | 2021-06-02 16:20 | NUR ---
REPORT CALLED TO LEOBARDO CARRERA.
== END 2021-06-02 15:50 ==
LOC: SSTAY O 13:32
PROVIDERS: ATTEND Radiology Diagnostic Radiology
DX: R13.10 Dysphagia, unspecified (principal); Z88.0 Allergy status to penicillin; Z91.030 Bee allergy status; Z79.82 Long term (current) use of aspirin; Z79.899 Other long term (current) drug therapy
CPT/HCPCS: 36415; 49440; 74018; 85025; 99152; 99153; C1713; J1200; J1610; J2250; J2405; J3010; J3490; Q9967; 85008; B4087

== ENCOUNTER 2021-06-04 11:11 | Day surgery (SDC) | payer OTHER ==
[2021-06-04 11:24] VITALS: BP 138/73
[2021-06-04] MEDS ORDERED: AMLO5TAB4 PO (12:12)
[2021-06-04] MEDS ORDERED: BUPR-94 PO (12:12)
[2021-06-04] MEDS ORDERED: CARV-50 PO (12:12)
[2021-06-04] MEDS ORDERED: BARIUM SULFATE (12:12)
[2021-06-04] MEDS ORDERED: ISOS20TA8 PO (12:13)
[2021-06-04] MEDS ORDERED: HYDR-4069 PO (12:13)
[2021-06-04] MEDS ORDERED: INSU100V9 SQ (12:13)
[2021-06-04] MEDS ORDERED: FLUC100T PO (12:13)
[2021-06-04] MEDS ORDERED: INSU100C10 SQ (12:13)
[2021-06-04] MEDS ORDERED: FERR325T28 PO (12:13)
[2021-06-04] MEDS ORDERED: ESOM20SU2 (12:13)
[2021-06-04] MEDS ORDERED: heparin 1,000unit/ml 10ml vial 10 ML ONE (13:16)
[2021-06-04] MEDS ORDERED: LIDOcaine 1% (10mg/ml) 2ml vial ONE (13:16)
[2021-06-04 14:15] VITALS: BP 133/57
[2021-06-04 14:30] VITALS: BP 136/67
[2021-06-04 14:45] VITALS: BP 141/57
== END 2021-06-04 15:20 ==
LOC: SSTAY O 11:11
PROVIDERS: ATTEND Preventive Medicine Aerospace Medicine
DX: T82.49XA Other complication of vascular dialysis catheter, initial encounter (principal); N18.6 End stage renal disease; Z79.899 Other long term (current) drug therapy; Y83.8 Other surgical procedures as the cause of abnormal reaction of the patient, or of later complication, without mention of misadventure at the time of the procedure; Y92.89 Other specified places as the place of occurrence of the external cause
CPT/HCPCS: 36581; 37248; 77001; 82948; C1725; C1750; C1769; J1644; J3490; A9270

== ENCOUNTER 2021-06-05 06:45 | Day surgery (SDC) | payer OTHER ==
[~2021-06-05 06:45] MED LIST changes: +AMLO5TAB4 PO; -ASPI-1265 PO; +BARIUM SULFATE; +BUPR-94 PO; +CARV-50 PO; +ESOM20SU2; +FERR325T28 PO; -FLO0.4C PO; +FLUC100T PO; -FURO-150 PO; +HYDR-4069 PO; +INSU100C10 SQ; +INSU100V9 SQ; +ISOS20TA8 PO; +LIDOcaine 1% (10mg/ml) 2ml vial ONE; -OMEP40CA21 PO; -POTA-192 PO; -ROPI0.2540 PO; -VALS40TA11 PO; +iohexol 300 MG/1 ML 50ml polymer ONE
[2021-06-05 07:19] VITALS: BP 123/64
[2021-06-05] MEDS ORDERED: MIDAZolam 1 MG/ML 5ML VIAL ONE (08:09)
[2021-06-05] MEDS ORDERED: diphenhydrAMINE 50 mg/ml inj ONE (08:09)
[2021-06-05] MEDS ORDERED: fentaNYL/PF 50MCG/1 ML 2ML syringe ONE (08:09)
[2021-06-05 09:05] VITALS: BP 109/67
[2021-06-05 09:15] VITALS: BP 92/63
[2021-06-05 09:25] VITALS: BP 106/56
[2021-06-05 09:35] VITALS: BP 112/57
== END 2021-06-05 11:10 ==
LOC: GI LAB 06:45
PROVIDERS: ATTEND Internal Medicine Gastroenterology
DX: R13.10 Dysphagia, unspecified (principal); K29.60 Other gastritis without bleeding; I10 Essential (primary) hypertension; G25.81 Restless legs syndrome; Z96.641 Presence of right artificial hip joint; Z88.0 Allergy status to penicillin; Z91.030 Bee allergy status; Z79.899 Other long term (current) drug therapy
CPT/HCPCS: 43246; G0500; J1200; J2250; J3010; J3490; Q9967; Z7512; 99153; A4620

== ENCOUNTER 2021-06-13 13:49 | Day surgery (SDC) | payer OTHER, MEDICAID ==
[~2021-06-13] VITALS: Ht 182.9 cm; Wt 85.0 kg
[~2021-06-13 13:49] MED LIST changes: -LIDOcaine 1% (10mg/ml) 2ml vial ONE; -iohexol 300 MG/1 ML 50ml polymer ONE
[2021-06-13 13:56] VITALS: BP 118/70
[2021-06-13] MEDS ORDERED: OLAN5TAB3 PO (14:09)
[2021-06-13] MEDS ORDERED: PANT40VI2 IV (14:10)
[2021-06-13] MEDS ORDERED: LACT1CAP65 PO (14:12)
[2021-06-13] MEDS ORDERED: FLO0.4C PO (14:14)
[2021-06-13] MEDS ORDERED: diphenhydrAMINE 50 mg/ml inj ONE (14:30)
[2021-06-13] MEDS ORDERED: LIDOcaine Viscous 15ml cup ONE (14:30)
[2021-06-13] MEDS ORDERED: MIDAZolam 1 MG/ML 5ML VIAL ONE (14:30)
[2021-06-13] MEDS ORDERED: fentaNYL/PF 50MCG/1 ML 2ML syringe ONE (14:30)
[2021-06-13 15:35] VITALS: BP 110/71
[2021-06-13 15:45] VITALS: BP 103/64
[2021-06-13 15:55] VITALS: BP 106/68
[2021-06-13 16:05] VITALS: BP 106/70
[2021-06-13 16:15] VITALS: BP 102/51
== END 2021-06-13 16:24 ==
LOC: GI LAB 13:49
PROVIDERS: ATTEND Internal Medicine Gastroenterology
DX: K92.1 Melena (principal); D50.0 Iron deficiency anemia secondary to blood loss (chronic); K29.70 Gastritis, unspecified, without bleeding; K29.80 Duodenitis without bleeding; I10 Essential (primary) hypertension; E11.9 Type 2 diabetes mellitus without complications; Z87.891 Personal history of nicotine dependence; Z88.0 Allergy status to penicillin; Z91.030 Bee allergy status; Z79.899 Other long term (current) drug therapy
CPT/HCPCS: 43239; J1200; J2250; J3010; J7030; Z7512; 99152; A4620

== ENCOUNTER 2021-07-02 06:13 | Day surgery (SDC) | payer OTHER, MEDICAID ==
[~2021-07-02] VITALS: Ht 185.4 cm; Wt 73.9 kg
[2021-07-02] VITALS (8 sets, daily range): BP systolic 110–146; BP diastolic 69–91
[~2021-07-02 06:13] MED LIST changes: -BARIUM SULFATE; -ESOM20SU2; +FLO0.4C PO; -FLUC100T PO; +LACT1CAP65 PO; +OLAN5TAB3 PO; +PANT40VI2 IV
[2021-07-02] MEDS ORDERED: LIDOCAINE 1% w/preservative (10 MG/ML) inj. 10mL VIAL ONE (07:57)
--- NOTE | 2021-07-02 09:30 | NUR ---
Nica Man PA at bedside to remove TDC.
--- NOTE | 2021-07-02 09:40 | NUR ---
TDC removed, dressing applied. Pt enrike well.
== END 2021-07-02 11:45 ==
LOC: SSTAY O 06:13
PROVIDERS: ATTEND Radiology Vascular & Interventional Radiology
DX: Z49.01 Encounter for fitting and adjustment of extracorporeal dialysis catheter (principal); E11.22 Type 2 diabetes mellitus with diabetic chronic kidney disease; I13.0 Hypertensive heart and chronic kidney disease with heart failure and stage 1 through stage 4 chronic kidney disease, or unspecified chronic kidney disease; N18.9 Chronic kidney disease, unspecified; I50.9 Heart failure, unspecified; I48.91 Unspecified atrial fibrillation; Z88.0 Allergy status to penicillin; Z91.030 Bee allergy status; Z79.899 Other long term (current) drug therapy; Z79.4 Long term (current) use of insulin; Z96.641 Presence of right artificial hip joint
CPT/HCPCS: 36589; 82948